=== PATIENT | male | born 1995 | race African-American/Black ===

== ENCOUNTER 2018-10-13 12:03 | Emergency (ER) | payer OTHER ==
[~2018-10-13] VITALS: Ht 167.6 cm; Wt 74.8 kg
[2018-10-13 13:06] VITALS: BP 167/107
== END 2018-10-13 13:07 | disposition home or self-care (01) ==
LOC: FSED 12:03
DX: L03.211 Cellulitis of face (principal); I10 Essential (primary) hypertension
CPT/HCPCS: 99282